=== PATIENT | female | born 1965 | race Caucasian/White ===

== ENCOUNTER 2017-05-09 11:16 | Emergency (ER) | payer MEDICARE, OTHER ==
[~2017-05-09] VITALS: Ht 160 cm; Wt 106.6 kg
[~2017-05-09 11:16] MED LIST: ALBU90OI INH; BUTALB-ACETAMI1 EACH PO; DULO30 PO; DULO60; GABA100 PO; MONT10T PO; MONT5TCH PO; NAPR500 PO; PANT40 PO; TIZANIDINE HCL4 MG PO; TRAM50 PO; VARE1 PO; VERA120ERB PO
[2017-05-09] MEDS ORDERED: Prednisone20 MG PO (13:53)
== END 2017-05-09 13:58 | disposition home or self-care (01) ==
LOC: ER 11:16
DX: S90.852A Superficial foreign body, left foot, initial encounter (principal); R05 Cough; W45.8XXA Other foreign body or object entering through skin, initial encounter; Z88.6 Allergy status to analgesic agent; Z88.1 Allergy status to other antibiotic agents; Z88.8 Allergy status to other drugs, medicaments and biological substances; Z79.899 Other long term (current) drug therapy; J45.909 Unspecified asthma, uncomplicated; Z87.01 Personal history of pneumonia (recurrent); Z87.891 Personal history of nicotine dependence
CPT/HCPCS: 71046; 73630; 94640; 99283